=== PATIENT | female | born 1995 | race Two or more races ===

== ENCOUNTER 2024-03-30 05:30 | Day surgery (SDC) | payer OTHER ==
[2024-03-28 10:36] VITALS: BP 103/57
[~2024-03-30] VITALS: Ht 162.6 cm; Wt 55.8 kg
[~2024-03-30 05:30] MED LIST: HUMALOG100 UNIT/2; LANTUS SOL100 UNIT/1
[2024-03-30] MEDS ORDERED: CEFAZOLIN SODIUM 1,000 MG VIAL ONE (11:37)
[2024-03-30] MEDS ORDERED: CHLORHEXIDINE GLUCONATE 120 ML BOTTLE TOP ONE ×2 (12:13→12:45)
[2024-03-30] MEDS ORDERED: CEFAZOLIN SODIUM 1,000 MG VIAL IV SCH (12:45)
== END 2024-03-30 16:05 | disposition home or self-care (01) ==
LOC: CIR.AMB 05:30
PROVIDERS: ATTEND Surgery
DX: D48.62 Neoplasm of uncertain behavior of left breast (principal); E10.9 Type 1 diabetes mellitus without complications